=== PATIENT | female | born 1960 | race Caucasian/White ===

== ENCOUNTER 2016-04-24 15:39 | Emergency (ER) | payer BC ==
[~2016-04-24] VITALS: Ht 165.1 cm; Wt 85.5 kg
[2016-04-24 16:38] LABS: HEMATOCRIT 41.6 % (36.0-46.0); MCH 29.1 PG (29.0-34.0); MCHC 33.4 G/DL (30.0-36.0); MEAN PLAT.VOLUME 9.7 uM^3 (9.5-12.4); PLATELET COUNT 250 K/uL (156-360); RBC DIS.WIDTH-CV 13.4 % (11.8-14.6); RBC DIS.WIDTH-SD 42.3 % (39-53); RED BLOOD COUNT 4.78 M/uL (3.80-5.20)
[2016-04-24 16:45] LABS: CHLORIDE 106 mEq/L (99-109); SODIUM 141 mEq/L (136-147)
[2016-04-24 16:47] LABS: GLUCOSE 93 mg/dL (70-99)
[2016-04-24 16:49] LABS: ANION GAP 9 MEQ/L (2-14)
[2016-04-24 16:51] LABS: GFR ESTIMATE (CALCULATED) > 59 mL/min/
[2016-04-24 16:52] LABS: UREA NITROGEN (BUN) 13 mg/dL (9-23)
[2016-04-24 16:58] LABS: TROP-I INTERPRETATION NEGATIVE; TROPONIN-I < 0.01 ng/mL (0.0-0.30)
[2016-04-24] MEDS ORDERED: BUPROPION XL150 MG PO (19:38)
[2016-04-24] MEDS ORDERED: CITALOPRAM HBR20 MG PO (19:38)
[2016-04-24 20:12] VITALS: BP 118/71
== END 2016-04-24 20:13 | disposition home or self-care (01) ==
LOC: EME 15:39
DX: I49.3 Ventricular premature depolarization (principal)
CPT/HCPCS: 71020; 80048; 84484; 85027; 93005; 99281; 99284